=== PATIENT | male | born 1990 | race Caucasian/White ===

== ENCOUNTER 2018-01-06 09:15 | Emergency (ER) | payer OTHER ==
[~2018-01-06] VITALS: Ht 180.3 cm; Wt 112.8 kg
[2018-01-06 09:18] VITALS: BP 132/72; PULSE 112; TEMP 98.6
[2018-01-06] MEDS ORDERED: PROAIR HFA0.09 MG/AC IH (11:00)
[2018-01-06] MEDS ORDERED: ZITHROMAX Z PA250 MG PO (11:00)
== END 2018-01-06 11:30 | disposition home or self-care (01) ==
LOC: COL.ER 09:15
DX: J40 Bronchitis, not specified as acute or chronic (principal); R04.2 Hemoptysis